=== PATIENT | female | born 1990 | race American Indian/Alaskan Native ===

== ENCOUNTER 2018-09-04 13:44 | Emergency (ER) | payer SELFPAY ==
[2018-09-04 14:20] VITALS: BP 119/76
--- NOTE | 2018-09-04 14:21 | Event Note ---
ED Screening Note ED Screening Note: left sided suprapubic pain that began has been for three days states she saw the [facility], went to [facility], stated to come to the emergency room no urinary sx LNMP August 27, having spotting currently no N/V/D last BM yesterday normal no vaginal discharge PMHx anemia allergy: amoxicillin- hives +marijuana no tobacco occ drinker This initial assessment/diagnostic orders/clinical plan/treatment(s) is/are subject to change based on patients health status, clinical progression and re- assessment by fellow clinical providers in the ED. Further treatment and workup at subsequent clinical providers discretion. Patient/guardian urged not to elope from the ED as their condition may be serious if not clinically assessed and managed. Initial orders include: UA, urine preg <YARELIS CAMERON - Last Filed: 09/04/18 14:18> ED Screening Note: A physician and/or other qualified medical personnel has recommended that the patient receive further examination and/or treatment beyond their Medical Screening Exam. The risks and benefits were explained. The patient was informed of their right to emergency care. Patient left before final disposition of their medical condition. This note has been generated by me, Dr. Andrea Dutta III, MD, the [facility] for the emergency department. I have not seen this patient personally. <ANDREA DUTTA - Last Filed: 09/08/18 08:28>
[2018-09-04 15:02] LABS: Bilirubin,Urine NEG (Negative); Blood,Urine SM (Negative); Color,Urine Yellow (Yellow); Protein,Urine <15 mg/dL mg/dL (Negative); Urobilinogen,Urine < 2.0 mg/dL (<2.0); WBC,Urine < 1.0 /HPF (0.0-6.0)
[2018-09-04 15:10] LABS: HCG Qualitative,Urine Negative (Negative)
== END 2018-09-04 14:30 | disposition left against medical advice (07) ==
LOC: ED 13:44
DX: R10.9 Unspecified abdominal pain (principal); Z53.21 Procedure and treatment not carried out due to patient leaving prior to being seen by health care provider
CPT/HCPCS: 81001; 81025